=== PATIENT | female | born 1960 | race Caucasian/White ===

== ENCOUNTER → 2016-09-15 | Outpatient (CLI) | payer OTHER | LOC: FIMAGING 15:57 | DX: Z12.31 Encounter for screening mammogram for malignant neoplasm of breast (principal) | CPT/HCPCS: G0202 ==

== ENCOUNTER 2017-03-16 17:07 | Inpatient (IN) | payer OTHER ==
[2017-03-16] MEDS ORDERED: ACETAMINOPHEN 325 MG TAB PO ONE (18:17)
[2017-03-16 18:19] LABS: % IMMATURE GRANULYOCYTES 0.3 % (0.0-1.1); ABSOLUTE IMMATURE GRANULOCYTES 0.03 10^3/uL (0.00-0.10); ADD DIFF? NO; ADD MORPH? NO; ADD SCAN? NO; ATYPICAL LYMPHOCYTE FLAG 10 (0-99); FRAGMENT RBC FLAG 0 (0-99); HEMATOCRIT 33.8 % (38.0-47.0); HEMOGLOBIN 10.8 g/dL (12.6-16.3); LEFT SHIFT FLG 0 (0-99); LIPEMIA HEMOLYSIS FLAG 80 (0-99); MEAN CELL HEMOGLOBIN 26.9 pg (27.9-34.1); MEAN CELL VOLUME 84.1 fL (81.5-99.8); MEAN PLATELET VOLUME 8.6 fL (8.7-11.7); PLATELET CLUMPS FLAG 0 (0-99); PLATELET COUNT 334 10^3/uL (150-400); RED BLOOD CELL COUNT 4.02 10^6/uL (4.18-5.33); RED CELL DISTRIBUTION WIDTH 15.2 % (11.5-15.2)
[2017-03-16] MEDS ORDERED: PIPERACILLIN/TAZO 3.375 GM/DEX 50 ML IV ONE (18:23)
[2017-03-16] MEDS ORDERED: IOPAMIDOL (ISOVUE-300) 100 ML BTL ONE (18:28)
[2017-03-16 18:45] LABS: ANION GAP 13 mEq/L (8-16); CALCIUM 9.4 mg/dL (8.5-10.4); CARBON DIOXIDE 22 mEq/l (22-31); CHLORIDE 103 mEq/L (97-110); CREATININE 0.6 mg/dL (0.6-1.0); GLOMERULAR FILTRATION RATE > 60; GLUCOSE 96 mg/dL (70-100); POTASSIUM 3.9 mEq/L (3.5-5.2); SODIUM 138 mEq/L (134-144)
[2017-03-16 18:59] LABS: COLOR YELLOW; LEUKOCYTE ESTERASE,URINE NEGATIVE (NEGATIVE); NITRITE,URINE NEGATIVE (NEGATIVE)
--- NOTE | 2017-03-16 19:12 | EDPHY ---
H & P Stated Complaint: Has gastric bx this am;RX'd antibx,didn't start it;having abd pain/fever Time Seen by Provider: 03/16/17 17:35 HPI/ROS: CHIEF COMPLAINT: abdominal pain, fever HISTORY OF PRESENT ILLNESS: 56-year-old female presents emergency department complaining of abdominal pain and fever. Patient had an endoscopic ultrasound biopsy of a florin pancreatic lesion today by Dr. Contreras. It appeared to be infectious per Dr. Contreras. She was discharged home post procedure and was to oyster picker antibiotics at the pharmacy to start taking. Pt has had increasing abdominal pain as the day has progressed with a temperature up to 100.4 at home. Pt has not started the antibiotics. No nausea, vomiting, diarrhea. REVIEW OF SYSTEMS: A comprehensive 10 point review of systems is otherwise negative aside from elements mentioned in the history of present illness. Source: Patient - Personal History Current Tetanus Diphtheria and Acellular Pertussis (TDAP): Yes - Medical/Surgical History Other PMH: neg per pt - Social History Smoking Status: Former smoker - Physical Exam Exam: Physical Exam Gen: Alert and Oriented, NAD HEENT: PERRL, moist mucous membranes NECK: no meningismus CV: regular rate and regular rhythm PULM: CTAB, no wheezes ABDOMEN: Hypoactive bowel sounds, diffuse tenderness to palpation NEURO: Neurologically grossly intact EXTREMITIES: normal appearing SKIN: no rash or break in skin on exposed skin PSYCH: answers questions appropriately. Constitutional: Initial Vital Signs Temperature (C) 37.5 C 03/16/17 17:24 Heart Rate 88 03/16/17 17:24 Respiratory Rate 19 03/16/17 17:24 Blood Pressure 145/102 H 03/16/17 17:24 O2 Sat (%) 96 03/16/17 17:24 O2 Delivery Mode Room Air Allergies/Adverse Reactions: No Known Allergies Allergy (Unverified 03/16/17 17:27) Home Medications: Medication Instructions Recorded Herbals/Supplements -Info Only 1 each PO DAILY 03/16/17 Omeprazole [Omeprazole] 40 mg PO DAILY 03/16/17 Medical Decision Making - Diagnostics Imaging Results: Imaging Impressions Abdomen CT 03/16/17 18:20 Impression: 1. There is a 14.3 x 10.1 x 10.7 cm mass in the left upper quadrant of the abdomen, with differential considerations including a cystic-solid neoplasm and/ or multiloculated hematoma or abscess. Scattered mesenteric lymph nodes could be reactive or neoplastic. 2. Mild hepatic steatosis. 3. Borderline-splenomegaly. Findings were discussed with Kalyani Bryson NP at 21:27, on 03/16/2017. I had also attempted to contact Dr. Bari Orona. Imaging: Discussed imaging studies w/ scallop binder Radiologist ED Course/Re-evaluation: I spoke with Dr. Downing who is controls design engineer of GI. He spoke with Dr. Contreras who did the patients procedure today. Plan for CT ab pelvis with IV and oral contrast, antibiotics, labs and admission. Pt is comfortable with the plan. WBC mildly elevated at 10,600. - Data Points Laboratory Results: Laboratory Results 03/16/17 18:00 03/16/17 18:00 03/16/17 03/16/17 03/16/17 18:35 18:00 18:00 WBC 10.66 10^3/uL H 10^3/uL (3.80-9.50) RBC 4.02 10^6/uL L 10^6/uL (4.18-5.33) Hgb 10.8 g/dL L g/dL (12.6-16.3) Hct 33.8 % L % (38.0-47.0) MCV 84.1 fL fL (81.5-99.8) MCH 26.9 pg L pg (27.9-34.1) MCHC 32.0 g/dL L g/dL (32.4-36.7) RDW 15.2 % % (11.5-15.2) Plt Count 334 10^3/uL 10^3/uL (150-400) MPV 8.6 fL L fL (8.7-11.7) Neut % (Auto) 81.0 % H % (39.3-74.2) Lymph % (Auto) 9.1 % L % (15.0-45.0) [place] % (Auto) 8.1 % % (4.5-13.0) Eos % (Auto) 1.0 % % (0.6-7.6) Baso % (Auto) 0.5 % % (0.3-1.7) Nucleat RBC Rel Count 0.0 % % (0.0-0.2) Absolute Neuts (auto) 8.64 10^3/uL H 10^3/uL (1.70-6.50) Absolute Lymphs (auto) 0.97 10^3/uL L 10^3/uL (1.00-3.00) Absolute Monos (auto) 0.86 10^3/uL H 10^3/uL (0.30-0.80) Absolute Eos (auto) 0.11 10^3/uL 10^3/uL (0.03-0.40) Absolute Basos (auto) 0.05 10^3/uL 10^3/uL (0.02-0.10) Absolute Nucleated RBC 0.00 10^3/uL 10^3/uL (0-0.01) Immature Gran % 0.3 % % (0.0-1.1) Immature Gran # 0.03 10^3/uL 10^3/uL (0.00-0.10) Sodium 138 mEq/L mEq/L (134-144) Potassium 3.9 mEq/L mEq/L (3.5-5.2) Chloride 103 mEq/L mEq/L (97-110) Carbon Dioxide 22 mEq/l mEq/l (22-31) Anion Gap 13 mEq/L mEq/L (8-16) BUN 10 mg/dL mg/dL (7-23) Creatinine 0.6 mg/dL mg/dL (0.6-1.0) Estimated GFR > 60 Glucose 96 mg/dL mg/dL (70-100) Calcium 9.4 mg/dL mg/dL (8.5-10.4) Total Bilirubin 0.6 mg/dL mg/dL (0.1-1.4) Conjugated Bilirubin 0.4 mg/dL mg/dL (0.0-0.5) Unconjugated Bilirubin 0.2 mg/dL mg/dL (0.0-1.1) AST 16 IU/L IU/L (14-46) ALT 23 IU/L IU/L (9-52) Alkaline Phosphatase 79 IU/L IU/L (38-126) Total Protein 7.1 g/dL g/dL (6.3-8.2) Albumin 4.0 g/dL g/dL (3.5-5.0) Lipase 59 IU/L IU/L (23-300) Urine Color YELLOW Urine Appearance CLEAR Urine pH 6.0 (5.0-7.5) Ur Specific [place] 1.011 (1.002-1.030) Urine Protein NEGATIVE (NEGATIVE) Urine Ketones 1+ H (NEGATIVE) Urine Blood NEGATIVE (NEGATIVE) Urine Nitrate NEGATIVE (NEGATIVE) Urine Bilirubin NEGATIVE (NEGATIVE) Urine Urobilinogen NEGATIVE EU EU (0.2-1.0) Ur Leukocyte Esterase NEGATIVE (NEGATIVE) Urine Glucose NEGATIVE (NEGATIVE) Medications Given: Hydromorphone HCl (Dilaudid) 0.2 mg IVP Q2HRS PRN PRN Reason: Pain, Severe Unable to Take PO Stop: 03/26/17 19:34 Last Admin: 03/16/17 22:50 Dose: 0.2 mg Ertapenem 1 gm/ Sodium (Chloride) 100 mls @ 200 mls/hr IV DAILY@2100 JOHANNY PRN Reason: Protocol Stop: 04/15/17 20:59 Last Admin: 03/16/17 22:44 Dose: 100 mls Discontinued Medications Acetaminophen (Tylenol) 650 mg PO EDNOW ONE Stop: 03/16/17 18:18 Last Admin: 03/16/17 18:28 Dose: 650 mg Piperacillin/Tazobactam/Dextrose (Zosyn 3.375 Gm (Premix)) 50 mls @ 100 mls/hr IV EDNOW ONE PRN Reason: Protocol Stop: 03/16/17 18:52 Last Admin: 03/16/17 18:47 Dose: 50 mls Departure - Departure Disposition: [facility] Inpatient Acute Clinical Impression: Fever Qualifiers: Fever type: post-procedural Qualified Code(s): R50.82 - Postprocedural fever Abdominal pain Qualifiers: Abdominal location: generalized Qualified Code(s): R10.84 - Generalized abdominal pain Condition: Fair
[2017-03-16] MEDS ORDERED: ONDANSETRON 4 MG/2 ML VIAL IVP PRN (19:31)
[2017-03-16] MEDS ORDERED: ONDANSETRON DISINTEGRATING 4 MG TAB PO PRN (19:31)
[2017-03-16 19:33] LABS: ALANINE AMINOTRANSFERASE 23 IU/L (9-52); ALKALINE PHOSPHATASE 79 IU/L (38-126); ASPARTATE AMINOTRANSFERASE 16 IU/L (14-46); BILIRUBIN,TOTAL 0.6 mg/dL (0.1-1.4); BILIRUBIN-CONJUGATED 0.4 mg/dL (0.0-0.5); BILIRUBIN-UNCONJUGATED 0.2 mg/dL (0.0-1.1); TOTAL PROTEIN 7.1 g/dL (6.3-8.2)
[2017-03-16] MEDS ORDERED: NS 1,000 ML IV SCH (19:45)
--- NOTE | 2017-03-16 20:12 | GHP ---
[f rep st] HISTORY AND PHYSICAL DATE OF ADMISSION: 03/16/2017 HISTORY OF PRESENT ILLNESS: The patient is a pleasant 56-year-old female with a history of remote pa ncreatic shunt. It sounds like she had blunt abdominal trauma, subsequently had a surgical procedure on her abdomen. She has done well for a number of years. This happened probably 30 years ago. Of the last few months, she has had increasing abdominal pain, and a rising sedimentation rate. She gets most of her care outside of the [facility] and I have few records. 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 The differential on this was infection, a cystic neoplasm, etc. She underwent EUS with biopsy today with Dr. Ankit Contreras and he withdrew what appeared to be pus. The Gram stain on that at an outside institution shows polys and gram-negative rods. She was discharged with antibiotics but developed a fever and presents here. When I speak with the patient, she is alert, mentating and feels well. She has not had subjective fe vers or chills prior to this. She has not had drenching night sweats or weight loss. She describes occasional bouts of abdominal pain with nausea and vomiting but no hospitalizations for pancreatitis. She drinks some alcohol with regularity but does not binge. REVIEW OF SYSTEMS: Complete 10-point review of systems conducted and negative except as noted in the HPI. PAST MEDICAL HISTORY: Pancreatic shunt, reflux. SOCIAL HISTORY: Occasional alcohol. No tobacco. 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 Lives in [place]. FAMILY HISTORY: Reviewed and unremarkable. PHYSICAL EXAMINATION: VITAL SIGNS: Temp 37.5, blood pressure 145/102, pulse 88, breathing 19 times a minute, 96 on room air. GENERAL: No acute distress. HEENT: Sclerae anicteric. Oropharynx clear . Mucous membranes moist. NECK: Supple. No lymphadenopathy or JVD. LUNGS: Clear to auscultation bilaterally. HEART: S1, S2. ABDOMEN: Soft, nontender, nondistended. No rebound or guarding. LO WER EXTREMITIES: No edema. Calves are nontender. SKIN: Without rash. NEUROLOGIC: Nonfocal. LABORATORY DATA: White count 10.6, hematocrit 34, platelets are 334,000. Sodium 138, potassium 3.9, chloride 103, bicarb 22, BUN 13, creatinine 0.6, glucose 96. UA is negative. I have discussed the case with Dr. Fisher as well as CHALINO Hartley in the emergency department. ASSESSMENT/PLAN: A 56-year-old female with an intraabdominal abscess. 1. Abscess. This appears to be an abscess on the basis of a Gram stain and polys present on the asp iration today. She has an abdominal CAT scan pending at this time. She was started on Zosyn in the emergency department. I will switch her over to ertapenem. Blood cultures have been drawn. We will start her on IV fluids. She does not have sepsis. 2. Reflux. We will order a proton pump inhibitor. 3. Pain. P.r.n. Dilaudid. 4. Prophylaxis. The patient is moderate to high risk, and should be on deep venous thrombosis proph ylaxis. But given the potential need for upcoming surgery or other procedure we will hold off. DISPOSITION: Inpatient status. /[id number]/MODL
[2017-03-16] MEDS: ERTAPENEM 1 GM in NS 100 ML IV SCH (22:44)
[2017-03-16] MEDS: HYDROmorphONE/DILAUDID 1 MG/ML INJ IVP PRN (22:50)
[2017-03-17] MEDS: HYDROmorphONE/DILAUDID 1 MG/ML INJ IVP PRN ×2 (01:08→04:37)
--- NOTE | 2017-03-17 02:48 | GCON ---
[f rep st] CONSULTATION DATE OF CONSULTATION: 03/16/2017 REFERRING PHYSICIAN: Dr. Orona INDICATION FOR CONSULTATION: Abdominal pain and fever after EUS and needle biopsy of possible phlegm on/abscess. HISTORY OF PRESENT ILLNESS: The patient is a pleasant 56-year-old female, who was referred to our pr actice for abnormal sonogram followed by a CT scan. She had an abdominal ultrasound performed on Jan, abnormal appearance of the left kidney, and they recommended a CT scan. A CT scan with and without contrast was performed on March 09, 2017, and revealed a 14.9 cm heterogeneous enhan cing mass with internal septations and foci of fluid attenuation, which involves the lateral wall of the stomach and the tail of the pancreas and envelops the patient's presumptive "pancreatic shunt" wi thout definite evidence of narrowing. She was referred to endoscopic ultrasound, which was performed today over [facility]. My partner, who performed the procedure, said when he put a nee dle into it, it appeared to be also a phlegmon. He sent it off for analysis. I do not have his curr ent dictation. The aspirate from the pancreatic body did show many WBCs with predominantly polys and a few gram-negative rods. Culture results are pending. After discharge, she has felt some pain in her stomach, and they thought it was just mostly air. She was discharged home and she called back co mplaining of pain and fever, and so she was recommended to come back to the emergency room for evalua tion. She lives close to [facility] and came to the emergency room here. She is now b ei admitted for a presumed infectious process involving her pancreatic shunt. Her history of pancr eatitis dates back many years in 1985 when she had a volleyball injury and a pancreatic injury. The surgeon at that point performed a shunt where he took part of her intestine and attached it to the ta il of her pancreas. Over the last number of months, she has been having infectious issues that have been treated with antibiotics. I believe her infectious issues have most likely been this phlegmon. She is now admitted for definitive evaluation and treatment. PAST MEDICAL/SURGICAL HISTORY: Pancreatitis, cholecystectomy, . She has some reflux, for w hich she takes omeprazole. MEDICATIONS: At home include omeprazole. Medications in-hospital: Tylenol p.r.n., ertapenem 100 mL IV daily, Dilaudid p.r.n., Zofran p.r.n., Protonix 40 mg daily. ALLERGIES: No known drug allergies. SOCIAL HISTORY: She quit tobacco in her early 40s. She drinks occasional alcohol every couple days. FAMILY HISTORY: Positive for breast cancer. No colon cancer or colon polyps. No pancreatic abnorma lities. REVIEW OF SYSTEMS: A complete review of systems is performed and is negative other than noted in the HPI. Pertinent negatives currently include no rigors, no chest pain, no cough, no dysuria, no diarr hea, no hematochezia. PHYSICAL EXAMINATION: GENERAL: Well developed, well-nourished female, sitting in her bed, in no acu te distress. VITAL SIGNS: Temperature is 37.5, blood pressure is 145/102, pulse is 88, respirations are 19. She is 96% on room air. EYES: Anicteric. SARA. EOMI. MOUTH: No lesions. Moist mucous membranes. NECK: Supple. Full range of motion. No JVD. BACK: No spine tenderness. No CVA tend erness. LUNGS: Clear. CARDIAC: S1, S2. Regular rate and rhythm. No murmurs, rubs, or gallops ap preciated. ABDOMEN: Soft. Bowel sounds are normal in pitch and frequency. Tender over in the left side. No rebound. No guarding. EXTREMITIES: No cyanosis, clubbing, or edema. NEUROLOGIC: Crani al nerves intact. Nonfocal. SKIN: No stigmata of advanced liver disease. No rashes. LABORATORY DATA: WBC 10.66, hemoglobin 10.8, hematocrit 33.8, platelet count 334. Sodium 138, potas sium 3.9, chloride 103, bicarb 22, BUN 10, creatinine 0.6, glucose 96, calcium 9.4. Bilirubin 0.6, A ST 16, ALT 23, alkaline phosphatase 79, total protein 7.1, albumin 4.0, lipase 59. Her UA is normal except for 1+ ketones. IMAGING DATA: Her CT scan of the abdomen performed today is pretty consistent with the one performed on March 09. She has a 14 x 3 x 10.1 x 10 cm mass in the left lower quadrant of the abdomen. There are curvilinear surgical clips within this mass just posterior to the gastric fundus and adriana guous with the distal pancreatic body and tail. Differential diagnosis includes multiloculated hemat yifan or abscess, cystic or solid neoplasm. I favor an infection,, given the EUS results noted in the HPI. ASSESSMENT: 1. A 56-year-old female, who presents with pain and fever after endoscopic ultrasound and needle bio psy of this abnormality noted on CT scan, which I think is likely to be a phlegmon. She does have so me gram-negative rods in it. I do not know what the cultures will grow. 2. Abnormal imaging study. 3. History of reflux. RECOMMENDATIONS: 1. IV antibiotics. 2. Surgical consult in the a.m. 3. Omeprazole for her reflux. 4. P.r.n. Dilaudid for pain. 5. Further recommendations to follow results of above and clinical course. I have discussed this ca se with Dr. Orona. He has changed her from Zosyn over to ertapenem. /[id number]/MODL
[2017-03-17 06:29] LABS: % IMMATURE GRANULYOCYTES 0.4 % (0.0-1.1); ABSOLUTE IMMATURE GRANULOCYTES 0.03 10^3/uL (0.00-0.10); ADD DIFF? NO; ADD MORPH? NO; ADD SCAN? NO; ATYPICAL LYMPHOCYTE FLAG 10 (0-99); FRAGMENT RBC FLAG 0 (0-99); HEMATOCRIT 30.5 % (38.0-47.0); HEMOGLOBIN 9.6 g/dL (12.6-16.3); LEFT SHIFT FLG 0 (0-99); LIPEMIA HEMOLYSIS FLAG 80 (0-99); MEAN CELL HEMOGLOBIN 26.7 pg (27.9-34.1); MEAN CELL HEMOGLOBIN CONCENTR. 31.5 g/dL (32.4-36.7); MEAN PLATELET VOLUME 8.4 fL (8.7-11.7); PLATELET CLUMPS FLAG 10 (0-99); PLATELET COUNT 269 10^3/uL (150-400); RED BLOOD CELL COUNT 3.59 10^6/uL (4.18-5.33); RED CELL DISTRIBUTION WIDTH 15.1 % (11.5-15.2)
[2017-03-17 06:36] LABS: INR 1.34 (0.83-1.16); PROTIME(PATIENT) 16.6 SEC (12.0-15.0)
[2017-03-17 06:37] LABS: APTT 27.2 SEC (23.0-38.0)
[2017-03-17 06:47] LABS: ALANINE AMINOTRANSFERASE 26 IU/L (9-52); ALBUMIN 3.2 g/dL (3.5-5.0); ALKALINE PHOSPHATASE 65 IU/L (38-126); ANION GAP 10 mEq/L (8-16); ASPARTATE AMINOTRANSFERASE 14 IU/L (14-46); BILIRUBIN,TOTAL 0.7 mg/dL (0.1-1.4); CALCIUM 8.7 mg/dL (8.5-10.4); CARBON DIOXIDE 24 mEq/l (22-31); CHLORIDE 105 mEq/L (97-110); CREATININE 0.5 mg/dL (0.6-1.0); GLOMERULAR FILTRATION RATE > 60; GLUCOSE 114 mg/dL (70-100); POTASSIUM 3.7 mEq/L (3.5-5.2); SODIUM 139 mEq/L (134-144); TOTAL PROTEIN 5.9 g/dL (6.3-8.2)
[2017-03-17] MEDS: PANTOPRAZOLE SODIUM 40 MG TAB PO SCH (07:53)
[2017-03-17] MEDS: ACETAMINOPHEN 325 MG TAB PO PRN ×2 (10:04→22:07)
--- NOTE | 2017-03-17 11:47 | HOSPPROG ---
Hospitalist Progress Note Assessment/Plan: #Fever: after EUS and needle biopsy of suspected abdominal phlegmon. -Contact [facility] for culture results. -Appreciate GI consultation, surgery will consult today. -IV Ertapenem, mild leukocytosis resolved #Abd pain: not peritoneal. Pancreatic injury vs infection. #Diet: NPO #Disp: cont inpt care for acute pain control, surgical consult Subjective: epigastric pain improved Objective: Vital Signs Temp Pulse Resp BP Pulse Ox 36.8 C 74 19 148/96 H 91 L 03/17/17 11:45 03/17/17 11:45 03/17/17 11:45 03/17/17 11:45 03/17/17 11:45 Laboratory Results 03/17/17 06:03 03/17/17 06:03 PT 16.6 SEC (12.0-15.0) H 03/17/17 06:03 INR 1.34 (0.83-1.16) H 03/17/17 06:03 - Physical Exam Constitutional: no apparent distress Eyes: PERRL Ears, Nose, Mouth, Throat: moist mucous membranes, hearing normal Cardiovascular: regular rate and rhythym, no murmur, rub, or gallop Respiratory: no respiratory distress Gastrointestinal: normoactive bowel sounds, other (mild epigastric TTP, no rebound or guarding, +BS ) Genitourinary: no bladder fullness Skin: warm Musculoskeletal: full muscle strength Neurologic: AAOx3, CN II-XII Intact Psychiatric: interacting appropriately ICD10 Worksheet Patient Problems: Problems Problem Status Onset Abdominal pain Acute Fever Acute
--- NOTE | 2017-03-17 15:40 | ASMTCMCOM ---
CM Note CM Note Notes: Per RN Nita pt will need home IV antibiotics, pt currently on Ertapenem. Will get picc tomorrow. Amradhika faxed referral and Lorena notified. CM to follow. Date Signed: 03/17/2017 03:39 PM Electronically Signed By:RAÚL Thomas
--- NOTE | 2017-03-17 18:55 | SOAPPROG ---
SOASHA Progress Note Assessment/Plan: Assessment:Plan: 1) mass lesion ? phlegmon? - I have asked both surgery and ID to see pt. I think this is infectious and will need surgical removal. If it is a caner or complicated pseudocyst then surgery is also likely the answer for this problem. Question about timing of surgery. Her needle asp of panc showed reactive changes no cancer. LN was also reacitve. Her cx is pending - poly's and few gram neg rods thus far 2) ID - on ABX, ID consult pending. I spoke with Dr. Rodrigues by phone Dr. Watts will be picking up inpt at 5pm today Subjective: cc- mass lesion noted on CT scan assoc with her pancrease pt feeling OK, still some pain but better wondering about plan Objective: Vital Signs Temp Pulse Resp BP Pulse Ox 36.8 C 74 19 148/96 H 91 L 03/17/17 11:45 03/17/17 11:45 03/17/17 11:45 03/17/17 11:45 03/17/17 11:45 Laboratory Results 03/17/17 06:03 03/17/17 06:03 03/16/17 03/17/17 03/18/17 05:59 05:59 05:59 Intake Total 900 Balance 900 PT 16.6 SEC (12.0-15.0) H 03/17/17 06:03 INR 1.34 (0.83-1.16) H 03/17/17 06:03 A+Ox3 CTA S1S2, RRR +BS, soft tender no r/g ICD10 Worksheet Patient Problems: Problems Problem Status Onset Abdominal pain Acute Fever Acute
--- NOTE | 2017-03-17 19:08 | GCON ---
[f rep st] CONSULTATION DATE OF CONSULTATION: 03/17/2017 INDICATION FOR CONSULTATION: Abdominal pain and fever after EUS and needle biopsy for possible phlegmon or abscess. HISTORY OF PRESENT ILLNESS: The patient is a 56-year-old female who has been experiencing intermittent signs and symptoms of infection including abdominal pain and fever over the last 2-3 months, for which she has been treated with 3 different regimens of antibiotics without success. She had an abdominal CT scan done at [facility] that showed an 11 x 10 x 15 cm heterogeneously enhancing mass in the left upper quadrant of her abdomen with differential considerations including a cystic solid neoplasm, multi-loculated hematoma or abscess. She underwent an EUS with biopsy with Dr. Contreras. She reports that he withdrew what appeared to be pus-like fluid. The Gram stain demonstrated neutrophils and gram-negative rods. Cultures and Pathology are still pending. She was discharged from the EUS with antibiotics but developed a fever and abdominal pain, which is the reason for this admission. Today, the patient is alert and oriented. She feels well. She complains of slight abdominal tenderness. She denies subjective fevers and chills. She denies night sweats and weight loss. She denies nausea and vomiting. She overall feels well. REVIEW OF SYSTEMS: Complete 10-point review of systems conducted and negative, except for as noted in the HPI. PAST MEDICAL HISTORY: She has remote history of a pancreatic shunt for blunt trauma she experienced 30 years ago. Details unknown to patient. GERD. SOCIAL HISTORY: She is an occasional alcohol user. She denies use of tobacco. FAMILY HISTORY: Unremarkable. PHYSICAL EXAMINATION: VITAL SIGNS: Afebrile. Blood pressure 148/96. GENERAL : Well-appearing, nontoxic-appearing female in no acute distress. HEENT: Sclerae anicteric. Normocephalic, atraumatic. Mucous membranes moist. NECK: No lymphadenopathy. LUNGS: Clear to auscultation bilaterally. No increased work of breathing. COR: Regular rate and rhythm. Normal S1, S2. No murmurs appreciated. ABDOMEN: Soft, obese, nontender to palpation, nondistended. No rebound or guarding. No signs of peritonitis. EXTREMITIES: Full range of motion. No edema. SKIN: Warm, dry, without rash. NEUROLOGIC: Alert and oriented. PSYCH: Normal mood and affect. ASSESSMENT AND PLAN: The patient is a 56-year-old female with a pancreatic mass of unknown etiology at this time. Differential considerations of this mass could be cystic solid neoplasm or an abscess. Abscess is unlikely given that her leukocytosis has been resolved with 1 overnight of IV antibiotics. In addition, she is afebrile. We are awaiting the pathology from the FNA. This will likely be resulted early next week. We have consulted Infectious Disease for antibiotics regimen. It is unlikely that antibiotics will clear this mass as she has been on 3 courses of antibiotics before this admission. This is likely a surgical problem requiring surgery for diagnosis and therapeutic purposes. Surgery will follow throughout this admission. /[id number]/MODL MTDD
--- NOTE | 2017-03-17 19:49 | GCON ---
[f rep st] CONSULTATION INPATIENT INFECTIOUS DISEASE CONSULTATION REFERRING PHYSICIAN: Huan Downing MD REASON FOR ADMISSION: Intraabdominal mass, query infection. HISTORY OF PRESENT ILLNESS: The patient is a 56-year-old female, who was admitted to [facility] last night through the Emergency Department secondary to abdominal pain and fever. The pat verenice underwent an abdominal CT approximately 1 week ago as an outpatient at [facility], which lucero wed a peripancreatic lesion. She underwent an endoscopic ultrasound biopsy by Dr. nAkit Contreras today, w here fluid was obtained that looked to be purulent. The patient was initially intended to be managed with oral antibiotics, but she had increasing abdominal pain and low-grade temps. She presented to the emergency room instead. The patient was admitted and started on intravenous ertapenem 1 g daily. A repeat abdominal CT scan was obtained, which showed a very large heterogeneous mass that seems to be exophytic off the tail of the pancreas, but abutting as well to the wall of the stomach. There i s some fluid within this mass, as well as solid tissue and some calcification. She is resting comfor tably in her hospital bed currently. No immediate complaints. Family is in the room. PAST MEDICAL HISTORY: 1. Old athletic injury while she was in college playing volleyball. 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 She has not had a problem with this fix over the past 25-30 years. 2. Gastroesophageal reflux disease. PAST SURGICAL HISTORY: As above. ANTIBIOTICS: Ertapenem. ALLERGIES: The patient has no known medical allergies. SOCIAL HISTORY: The patient does not use tobacco. Occasional alcohol consumption. Very supportive family. FAMILY HISTORY: Reviewed, but noncontributory. REVIEW OF SYSTEMS: Other than that detailed above in history of present illness, a comprehensive 10- system review is negative. PHYSICAL EXAMINATION: VITAL SIGNS: Temperature maximum is 37.5, temperature current is 36.8, heart rate is 74, respiratory rate is 19, blood pressure is 148/96. GENERAL: The patient is a well-formed , well-nourished, middle-aged female in no acute distress. She is not toxic in appearance. She is a lert and oriented x3. She is in a pleasant demeanor. HEENT: Normocephalic for age. Atraumatic. N o scleral icterus. No oral lesion. No drainage from the nares. Eyes, lids and conjunctivae are wit hin normal limits. Pupils are equal and round bilaterally. NECK: Supple. No meningismus. LUNGS: Clear to auscultation bilaterally with good effort. HEART: Regular rate and rhythm. No murmur, ru b, or gallop noted. No significant peripheral edema. ABDOMEN: Soft, nontender. No masses. SKIN: Warm and dry to the touch. No rash or lesion. MUSCULOSKELETAL: No muscle belly tenderness is note d. No joint line effusion or arthritis seen. NEURO: Cranial nerves 2-12 seem to be intact. Periph eral sensation seems intact in extremities. LABORATORY DATA: The patient has a CBC dated 03/17/2017, shows a white blood cell count of 7.6, hemo globin of 9.6, hematocrit of 30.5, platelet count of 269. Differential is left shifted with 79% segm ented neutrophils. Serum chemistries on 03/17/2017, shows sodium 139, potassium 3.7, chloride 105, b icarbonate of 24, BUN of 7, and creatinine 0.5. Urinalysis on 03/16/2017, shows no significant abnor mality. MICROBIOLOGIC DATA: The patient has blood cultures dated 03/16/2017, which are pending. The aspirat e culture from the ultrasound is at [facility]. RADIOLOGIC DATA: The patient has abdominal pelvic CT dated 03/16/2017, which shows a 14.3 x 10.1 x 1 0.7 cm mass in the left upper quadrant of the abdomen with a cystic solid appearance. Interpretation s from Radiology includes cystic solid neoplasm, a multiloculated hematoma or abscess, scattered mese nteric lymph nodes around, mild hepatic steatosis, and borderline splenomegaly. ASSESSMENT: Large intraabdominal mass with tissue, as well as fluid, as well as calcifications withi n. This looks to be exophytic off the tail of the pancreas with maybe some abutment or invasion into the gastric wall. The invasive quality makes one consider a neoplastic process. This could be a se condarily infected neoplasm. Apparently, the fluid obtained is growing a gram-negative julianna. So, she is well covered with the ertapenem. I suspect that this is going to be requiring surgery to remove the mass and get accurate tissue diagnosis. At this point, I do not believe there is good cause to d elay that for any period of time to complete a course of antibiotics prior to surgical either biopsy or excision. PLAN: 1. Continue ertapenem for now. 2. Follow clinical course and discuss with Surgery regarding plan. /[id number]/MODL
[2017-03-17] MEDS: ERTAPENEM 1 GM in NS 100 ML IV SCH (22:06)
[2017-03-18 05:12] LABS: % IMMATURE GRANULYOCYTES 0.4 % (0.0-1.1); ABSOLUTE IMMATURE GRANULOCYTES 0.02 10^3/uL (0.00-0.10); ADD DIFF? NO; ADD MORPH? NO; ADD SCAN? NO; ATYPICAL LYMPHOCYTE FLAG 20 (0-99); FRAGMENT RBC FLAG 0 (0-99); HEMATOCRIT 30.2 % (38.0-47.0); HEMOGLOBIN 9.6 g/dL (12.6-16.3); LEFT SHIFT FLG 0 (0-99); LIPEMIA HEMOLYSIS FLAG 80 (0-99); MEAN CELL HEMOGLOBIN 26.9 pg (27.9-34.1); MEAN CELL HEMOGLOBIN CONCENTR. 31.8 g/dL (32.4-36.7); MEAN CELL VOLUME 84.6 fL (81.5-99.8); MEAN PLATELET VOLUME 8.7 fL (8.7-11.7); PLATELET CLUMPS FLAG 10 (0-99); PLATELET COUNT 247 10^3/uL (150-400); RED BLOOD CELL COUNT 3.57 10^6/uL (4.18-5.33); RED CELL DISTRIBUTION WIDTH 14.9 % (11.5-15.2)
[2017-03-18 05:29] LABS: ANION GAP 13 mEq/L (8-16); CALCIUM 8.6 mg/dL (8.5-10.4); CARBON DIOXIDE 24 mEq/l (22-31); CHLORIDE 105 mEq/L (97-110); CREATININE 0.6 mg/dL (0.6-1.0); GLOMERULAR FILTRATION RATE > 60; GLUCOSE 108 mg/dL (70-100); POTASSIUM 3.7 mEq/L (3.5-5.2); SODIUM 142 mEq/L (134-144)
--- NOTE | 2017-03-18 08:47 | HOSPPROG ---
Hospitalist Progress Note Assessment/Plan: #Fever: after EUS and needle biopsy of suspected abdominal phlegmon. -Contact [facility] for culture results. -IV Ertapenem, mild leukocytosis resolved -ID recs surgical intervention rather than abx to obtain path. I spoke with Dr. Solares today about expediting surgery. Patient declines surgery as inpatient. Will FU with Dr. Solares next week. Change to PO Flagyl, LQ #Abd pain: not peritoneal. Pancreatic injury vs infection. #Diet: regular #Disp: DC today with FU with Dr. Solares Subjective: no abdominal pain Objective: Vital Signs Temp Pulse Resp BP Pulse Ox 37.3 C 66 14 148/100 H 92 03/18/17 07:52 03/18/17 07:52 03/18/17 07:52 03/18/17 07:52 03/18/17 07:52 Laboratory Results 03/18/17 04:27 03/18/17 04:27 03/17/17 03/18/17 03/19/17 05:59 05:59 05:59 Intake Total 1200 Balance 1200 PT 16.6 SEC (12.0-15.0) H 03/17/17 06:03 INR 1.34 (0.83-1.16) H 03/17/17 06:03 - Physical Exam Constitutional: no apparent distress Eyes: PERRL Ears, Nose, Mouth, Throat: moist mucous membranes, hearing normal Cardiovascular: regular rate and rhythym Respiratory: no respiratory distress, no rales or rhonchi Gastrointestinal: normoactive bowel sounds, other (min epigastric TTP) Genitourinary: no bladder fullness Skin: warm Musculoskeletal: full muscle strength Neurologic: AAOx3, CN II-XII Intact Psychiatric: interacting appropriately ICD10 Worksheet Patient Problems: Problems Problem Status Onset Abdominal pain Acute Fever Acute
[2017-03-18] MEDS: PANTOPRAZOLE SODIUM 40 MG TAB PO SCH (09:13)
--- NOTE | 2017-03-18 10:59 | SOAPPROG ---
SOAP Progress Note Assessment/Plan: Assessment: Pancreatic lesion Abd pain with fever post needle biopsy clinically much better no fever and pain much improved. Patient would like to be discharged home. Plan: Agree with surgical treatment awaiting FNA From GI standpoint could consider discharge home (with PO antibiotics if ID agrees) with surgical follow up vs preceding with surgery this admission. Will defer to surgical consult. Subjective: CC abd pain Pt states pain is much better able to eat Objective: Vital Signs Temp Pulse Resp BP Pulse Ox 37.3 C 66 14 148/100 H 92 03/18/17 07:52 03/18/17 07:52 03/18/17 07:52 03/18/17 07:52 03/18/17 07:52 Laboratory Results 03/18/17 04:27 03/18/17 04:27 03/17/17 03/18/17 03/19/17 05:59 05:59 05:59 Intake Total 1200 Balance 1200 PT 16.6 SEC (12.0-15.0) H 03/17/17 06:03 INR 1.34 (0.83-1.16) H 03/17/17 06:03 Physical Exam - Physical Exam General Appearance: alert, no apparent distress Respiratory: chest non-tender, lungs clear Cardiac/Chest: regular rate, rhythm Abdomen: non-tender, soft ICD10 Worksheet Patient Problems: Problems Problem Status Onset Abdominal pain Acute Fever Acute
[2017-03-18 11:08] VITALS: BP 163/101; PULSE 71; RESP 16; TEMP 98.3; O2SAT 93
--- NOTE | 2017-03-18 14:25 | PCMIDPN ---
Assessment/Plan: Assessment: Abdominal mass- fluid withdrawn 3 days ago that is growing polymicrobial cultures at [facility]. Group F strep and a lactose fermenting gram- negative julianna. There is no evidence that this has any significant resistance to it. It is evidence that there is likely communication to the GI tract proper. Patient clearly needs surgery to remove this mass for diagnosis and therapeutic purposes. She and her understand this. She wishes to delay this until later this week or early next week due to other commitments. We will provide her with oral Levaquin 750 mg daily and metronidazole 500 mg 3 times a day for an antibiotic bridge until surgery. Plan: 1. okay for discharge today according to the plan above. 2. change antibiotic coverage from ertapenem to oral Levaquin 750 mg daily and metronidazole 500 mg three times daily. 03/18/17 14:21 Subjective: Patient is resting in her hospital bed. She continues to appear nontoxic. She has no new complaints. No fevers or chills. No rash. Appears to be tolerating antibiotics well. Objective: Ertapenem # 3 Vital Signs Temp Pulse Resp BP Pulse Ox 36.8 C 71 16 163/101 H 93 03/18/17 11:05 03/18/17 11:05 03/18/17 11:05 03/18/17 11:05 03/18/17 11:05 Laboratory Results 03/18/17 04:27 03/18/17 04:27 03/17/17 03/18/17 03/19/17 05:59 05:59 05:59 Intake Total 1200 Balance 1200 - Physical Exam General Appearance: WD/WN, alert, no apparent distress, non-toxic Respiratory: lungs clear Cardiac/Chest: regular rate, rhythm, No tachycardia Skin: normal color, warm/dry, No rash Neuro/Psych: alert, normal mood/affect, oriented x 3 ICD10 Worksheet Patient Problems: Problems Problem Status Onset Abdominal pain Acute Fever Acute
--- NOTE | 2017-03-18 14:51 | ASMTCMCOM ---
CM Note CM Note Notes: Patient discharging home with family on oral IV antibiotics. Patient changed from IV antibiotics with Ametita to oral Levaquin. No additional Case Management needs apparent at this time. Date Signed: 03/18/2017 02:51 PM Electronically Signed By:RAÚL Peña
--- NOTE | 2017-03-18 17:58 | SOAPPROG ---
[place] Progress Note Assessment/Plan: Assessment: 56-YEAR-OLD FEMALE WITH DISTAL PANCREATIC MASS STATUS POST BIOPSY WHICH SHOWED ONLY INFLAMMATORY CHANGE/SHE HAS A HISTORY OF INTERNAL DRAINAGE OF A PSEUDOCYST 30 YEARS AGO PRESENTLY WITH SOME TRANSIENT LEFT UPPER QUADRANT PAIN/ABDOMEN SOFT NONTENDER PRESENTLY MASS APPEARS TO BE PRIMARILY SOLID ON CT SCAN/HOLE REPORTS FROM [facility] OR NOT AVAILABLE TODAY/ RISKS AND OPTIONS WERE FULLY DISCUSSED WITH THE PATIENT AND HER . WOULD RECOMMEND SURGICAL RESECTION ANTIBIOTICS ALONE ARE UNLIKELY TO RESOLVE THE SITUATION AND THE POTENTIAL FOR MALIGNANT TO THE TUMOR EXISTS DESPITE A NEGATIVE BIOPSY. PATIENT HAS BEEN WISHED WRIST PROCEED WITH RESECTION NEXT WEEK Plan: HOME TODAY/FOLLOW-UP THE OFFICE NEXT WEEK TO PLAN SURGICAL INTERVENTION 03/18/17 17:54 Objective: Vital Signs Temp Pulse Resp BP Pulse Ox 36.8 C 71 16 163/101 H 93 03/18/17 11:05 03/18/17 11:05 03/18/17 11:05 03/18/17 11:05 03/18/17 11:05 Laboratory Results 03/18/17 04:27 03/18/17 04:27 03/17/17 03/18/17 03/19/17 05:59 05:59 05:59 Intake Total 1200 Balance 1200 PT 16.6 SEC (12.0-15.0) H 03/17/17 06:03 INR 1.34 (0.83-1.16) H 03/17/17 06:03 ICD10 Worksheet Patient Problems: Problems Problem Status Onset Abdominal pain Acute Fever Acute
--- NOTE | 2017-03-18 21:17 | GDS ---
[f rep st] DISCHARGE SUMMARY DISCHARGE DIAGNOSES: 1. Abdominal mass with polymicrobial positive culture (group F strep and lactose fermenting gram-negative rods). History of pseudocyst 30 years ago. 2. Acute left upper quadrant/epigastric pain. HISTORY OF PRESENT ILLNESS: A 56-year-old female with history of pseudocyst 30 years ago and remote pancreatic shunt. Over the last few months, she has had increased abdominal pain. Had abdominal CT done at [facility] the last few weeks showed she had an 11 x 10 x 15 cm heterogeneous enhancing mass and areas of internal septation and fluid attenuation that abuts the lateral wall of the stomach and tail of the pancreas. 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 Differential includes infection , cystic neoplasm, etc. She underwent EUS with Dr. Ankit Contreras on 03/16/2017, and withdrew what appeared to be pus. Cultures showed gram-negative julianna, and thus she was discharged home on antibiotics. She presented to the emergency room at [facility] due to fever at home and increased abdominal pain. HOSPITAL COURSE BY PROBLEM: 1. Abdominal mass: Differential includes cancer, phlegmon. She has been on 3 rounds of antibiotic since early December per her report. Cultures at [facility] this week showed group F strep and lactose fermenting gram-negative rods. Dr. Rodrigues with Infectious Disease evaluated the patient, and recommends a 10-day course of levofloxacin and Flagyl. Dr. Solares with Surgery evaluated, and will see patient in clinic next Monday to remove this mass for diagnostic and therapeutic purposes. 2. Abdominal pain, resolved. 3. Fever, resolved. Blood cultures remain negative here. DISPOSITION: The patient is stable for discharge. NEW MEDICATIONS: Levo, Flagyl. FOLLOWUP: Dr. Solares, Monday. /[id number]/MODL MTDD
--- NOTE | 2017-03-20 14:12 | ASDISCHSUM ---
Discharge Information Plan Status:Home with No Needs Medically Cleared to Leave:03/18/2017 Discharge Date:03/18/2017 03:01 PM CM D/C Disposition:Home, Routine, Self-Care ADT D/C Disposition:Home, Routine, Self-Care Projected Discharge Date:03/18/2017 11:00 AM Transportation at D/C: Discharge Delay Reason: Follow-Up Date:03/18/2017 11:00 AM Discharge Slot: Final Diagnosis:abdominal pain, fever, Peripancreatic lesion Placement Information Referral Type:Home Infusion Referral ID:[id number] Provider Name: Address 1: Phone Number: Address 2: Fax Number: City: Selection Factors: State: Patient Contact Information Contact Name:BRITTNEY Relationship:Life Partner Address:[address] City:[facility] Phone: State/Zip Code:[place] [address] Email: Financial Information Financial Class:[employer] [facility] Primary Plan Desc:[facility] Primary Plan Number:[id number] Secondary Plan Desc: Secondary Plan Number: Assessment Information [facility] CM Progress Note CM Note CM Note Notes: Per MIMI Moya pt will need home IV antibiotics, pt currently on Ertapenem. Will get picc tomorrow. Nino faxed referral and Lorena notified. CM to follow. Date Signed: 03/17/2017 03:39 PM Electronically Signed By:RAÚL Thomas [facility] CM Progress Note CM Note CM Note Notes: Patient discharging home with family on oral IV antibiotics. Patient changed from IV antibiotics with Ametita to oral Levaquin. No additional Case Management needs apparent at this time. Date Signed: 03/18/2017 02:51 PM Electronically Signed By:RAÚL Peña Intervention Information
== END 2017-03-18 15:01 | disposition home or self-care (01) | DRG 947 ==
LOC: F3N 20:40
PROVIDERS: ADMIT Internal Medicine; ATTEND Internal Medicine
DX: G89.18 Other acute postprocedural pain (principal); R10.11 Right upper quadrant pain; R10.13 Epigastric pain; R50.81 Fever presenting with conditions classified elsewhere; K65.1 Peritoneal abscess; B95.4 Other streptococcus as the cause of diseases classified elsewhere; B96.89 Other specified bacterial agents as the cause of diseases classified elsewhere; Z98.0 Intestinal bypass and anastomosis status
CPT/HCPCS: 96365; J1170; J1335; J2543; Q9967

== ENCOUNTER 2017-03-27 05:39 | Inpatient (IN) | payer OTHER ==
[2017-03-27] MEDS ORDERED: ceFAZolin 2 GM/DEXTROSE 100 ML IV ONE (06:09)
[2017-03-27] MEDS ORDERED: LIDOCAINE 1% 2 ML INJ ID PRN (06:10)
[2017-03-27] MEDS ORDERED: LR 1,000 ML IV ONE (06:10)
[2017-03-27] MEDS ORDERED: BUPIVACAINE 0.5% 30 ML SDV ONE (06:52)
[2017-03-27] MEDS ORDERED: POLYMYXIN B SULFATE 500,000 UNIT/10 ML SYR IRR ONE (06:53)
--- NOTE | 2017-03-27 07:05 | PDANEPAE ---
ANE History of Present Illness 56 year old female presents for pancreatectomy w/ possible splenectomy. ANE Past Medical History - Cardiovascular History Hx Hypertension: No Hx Arrhythmias: No Hx Chest Pain: No Hx Coronary Artery / Peripheral Vascular Disease: No Hx CHF / Valvular Disease: No Hx Palpitations: No - Pulmonary History Hx COPD: No Hx Asthma/Reactive Airway Disease: No Hx Recent Upper Respiratory Infection: No Hx Oxygen in Use at Home: No Hx Sleep Apnea: No Sleep Apnea Screening Result - Last Documented: Negative - Neurologic History Hx Cerebrovascular Accident: No Hx Seizures: No Hx Dementia: No - Endocrine History Hx Diabetes: No Hypothyroid: No Hyperthyroid: No Obesity: no - Renal History Hx Renal Disorders: No - Liver History Hx Hepatic Disorders: No - Neurological & Psychiatric Hx Hx Neurological and Psychiatric Disorders: No - Congenital Disorder History Hx Congenital Disorders: No - GI History GERD: no Hx Gastrointestinal Disorders: Yes Gastrointestinal History Comment: pancreatic trauma 1985. GERD - Other Health History Other Health History: missing upper molar left - Chronic Pain History Chronic Pain: No - Surgical History Prior Surgeries: Cholecystectomy. Pancreatic shunt secondary to trauma. c- section ANE Review of Systems Review of systems is: negative Review of Systems: - Exercise capacity Exercise capacity: >=4 METS METS (RN): 4 METS ANE Patient History - Allergies Allergies/Adverse Reactions: No Known Allergies Allergy (Unverified 03/16/17 17:27) - Home Medications Home medications: home medication list seen and reviewed Home Medications: Omeprazole 40 mg PO DAILY 03/16/17 [Last Taken 03/27/17 05:00] - NPO status NPO Status: no food or drink >8 hours NPO Since - Liquids (Date): 03/26/17 NPO Since - Liquids (Time): 07:30 NPO Since - Solids (Date): 03/27/17 NPO Since - Solids (Time): 18:00 - Anes Hx Anes Hx: no prior problems - Smoking Hx Smoking Status: Former smoker - Alcohol Use Alcohol Use: Rarely - Family Anes Hx Family Anes Hx: neg - N/A Family Hx Anesthesia Complications: none ANE Labs/Vital Signs - Vital Signs Vital Signs: reviewed preoperatively; see RN documention for details Blood Pressure: 129/90 Heart Rate: 58 Respiratory Rate: 16 O2 Sat (%): 94 Height: 165.1 cm Weight: 80.739 kg ANE Physical Exam - Airway Neck exam: FROM Mallampati Score: Class 1 Mouth exam: normal dental/mouth exam - Pulmonary Pulmonary: no respiratory distress - Cardiovascular Cardiovascular: regular rate and rhythym - ASA Status ASA Status: II ANE Anesthesia Plan Anesthesia Plan: general endotracheal anesthesia, epidural (Epidural for post- op pain control. )
[2017-03-27] MEDS ORDERED: MIDAZOLAM 2 MG/2 ML VIAL IVP ONE (07:07)
[2017-03-27] MEDS ORDERED: fentaNYL 100 MCG/2 ML INJ ONE (07:11)
[2017-03-27] MEDS ORDERED: PROPOFOL 200 MG/20 ML VIAL ONE (07:11)
[2017-03-27] MEDS ORDERED: ROCURONIUM 50 MG/5 ML VIAL ONE ×2 (07:12→08:25)
[2017-03-27] MEDS ORDERED: LIDOCAINE 2% 5 ML SDV ONE (07:12)
--- NOTE | 2017-03-27 07:15 | PDHPUP ---
History & Physical Update H&P update statement: This history and physical update is based on an assessment of the patient which was completed after admission or registration (within 24 hours), but prior to the surgery/procedure. H&P update: H&P reviewed & patient examined, no change in patient's condition since H&P completed
[2017-03-27] MEDS ORDERED: ONDANSETRON 4 MG/2 ML VIAL ONE ×2 (08:03→12:27)
[2017-03-27] MEDS ORDERED: DEXAMETHASONE 4 MG/ML VIAL ONE (08:03)
[2017-03-27] MEDS ORDERED: NALOXONE HCL 0.4 MG/ML INJ IVP PRN ×3 (08:30→12:08)
[2017-03-27] MEDS ORDERED: NARCOTIC DRIP BAG-TOTAL ALL TYPES EP PRN (08:30)
[2017-03-27] MEDS ORDERED: METOCLOPRAMIDE 10 MG/2 ML VIAL IV PRN (08:33)
[2017-03-27] MEDS ORDERED: ONDANSETRON 4 MG/2 ML VIAL IVP PRN ×3 (08:33→11:58)
[2017-03-27] MEDS ORDERED: diphenhydrAMINE 25 MG CAP PO PRN (08:34)
[2017-03-27] MEDS ORDERED: HYDROmorphONE/DILAUDID 2 MG/ML INJ ONE (08:37)
[2017-03-27] MEDS ORDERED: ALBUMIN 5% 250 ML BOTTLE IV ONE (08:47)
[2017-03-27] MEDS ORDERED: LR 500 ML IV PRN (09:32)
[2017-03-27] MEDS ORDERED: HYDROmorphONE/DILAUDID 1 MG/ML INJ IVP PRN (09:32)
[2017-03-27] MEDS ORDERED: fentaNYL 100 MCG/2 ML INJ IVP PRN (09:32)
[2017-03-27] MEDS ORDERED: PHENYLEPHRINE HCL 100 MCG/ML SYR ONE (09:39)
[2017-03-27 09:51] LABS: HEMATOCRIT 27.4 % (38.0-47.0); HEMOGLOBIN 8.6 g/dL (12.6-16.3)
[2017-03-27] MEDS ORDERED: ROPIVACAINE HCL 150 MG/30 ML INJ ONE (10:09)
[2017-03-27] MEDS ORDERED: THROMBIN (BOVINE) 20,000 UNIT SPRAY TP ONE (10:31)
[2017-03-27] MEDS ORDERED: SUGAMMADEX SODIUM 200 MG/2 ML VIAL IVP ONE (11:43)
--- NOTE | 2017-03-27 11:53 | POSTOPPROG ---
Post Op Note Date of Operation: 03/27/17 Surgeon: Lino Solares Clinical Scientist: Vasu Monteiro MD, Lisbeth Fragoso PA-C Anesthesia: GET(General Endotracheal) Pre-op Diagnosis: complex pancreatic mass, infection Post-op Diagnosis: same, likely malignancy Procedure: distal pancreatectomy, splenectomy, partial gastrectomy and colectomy Findings: complex multilobulated mass invading colon and stomach Inf/Abcess present in the surg proc area at time of surgery?: No Depth: Organ Space EBL: 1200cc Complications: none Drains: Evan Bryant Specimen(s): to pathology and cultures to pathology
[2017-03-27] MEDS ORDERED: PHENYLEPHRINE HCL 100 MCG/ML SYR IVP PRN (12:08)
[2017-03-27] MEDS ORDERED: ALBUMIN 5% 500 ML IV ONE (12:12)
[2017-03-27] MEDS ORDERED: GLYCOPYRROLATE 0.2 MG/1 ML VIAL ONE (12:18)
[2017-03-27 12:43] LABS: HEMATOCRIT 19.4 % (38.0-47.0)
[2017-03-27 12:45] LABS: HEMOGLOBIN 6.1 g/dL (12.6-16.3)
[2017-03-27] MEDS: REGARDING ANTICOAG MISC SCH (14:17)
[2017-03-27] MEDS: DC NARCS MISC SCH (14:17)
[2017-03-27 14:50] LABS: INR 1.37 (0.83-1.16); PROTIME(PATIENT) 16.9 SEC (12.0-15.0)
[2017-03-27 14:51] LABS: APTT 20.8 SEC (23.0-38.0)
[2017-03-27 14:56] LABS: ALANINE AMINOTRANSFERASE 32 IU/L (9-52); ALBUMIN 3.3 g/dL (3.5-5.0); ALKALINE PHOSPHATASE 30 IU/L (38-126); ANION GAP 12 mEq/L (8-16); ASPARTATE AMINOTRANSFERASE 25 IU/L (14-46); BILIRUBIN,TOTAL 0.9 mg/dL (0.1-1.4); CALCIUM 8.1 mg/dL (8.5-10.4); CARBON DIOXIDE 22 mEq/l (22-31); CHLORIDE 107 mEq/L (97-110); CREATININE 0.7 mg/dL (0.6-1.0); GLOMERULAR FILTRATION RATE > 60; GLUCOSE 175 mg/dL (70-100); POTASSIUM 4.1 mEq/L (3.5-5.2); SODIUM 141 mEq/L (134-144); TOTAL PROTEIN 5.5 g/dL (6.3-8.2)
[2017-03-27 15:05] LABS: HEMATOCRIT 26.3 % (38.0-47.0); HEMOGLOBIN 8.3 g/dL (12.6-16.3)
[2017-03-27] MEDS: ERTAPENEM 1 GM in NS 100 ML IV SCH (15:15)
[2017-03-27 16:56] LABS: HEMATOCRIT 26.7 % (38.0-47.0); HEMOGLOBIN 8.6 g/dL (12.6-16.3)
--- NOTE | 2017-03-27 17:32 | POSTANESTH ---
Post Anesthetic Evaluation Cardiovascular Status: Tx Hyper/Hypo-tension (Mild hypotension likely due to thoracic epidural.) Respiratory Status: Normal, Stable, Similar to Pre-op Cond. Level of Consciousness/Mental Status: Can Participate in Eval, Alert and Oriented Pain Control: Adequate, Prn Tx Ordered Nausea/Vomiting Control: Adequate, Prn Tx Ordered Complications Possibly Related to Anesthesia: None Noted Notes: Patient evaluated this evening in ICU following surgery this morning. Pain well controlled with thoracic epidural. Patient reports mild nausea, but otherwise doing very well. ICU Nursing staff given Dr. Benitez (Anesthesiology) personal cell and pager for all issues related to thoracic epidural or pain control while epidural is in place.
--- NOTE | 2017-03-27 17:58 | SOAPPROG ---
SOAP Progress Note Assessment/Plan: Assessment: 56yo F POD#0 s/p distal pancreatectomy, splenectomy, partial gastrectomy and colectomy Lying in bed. Pain well controlled. Complaining of nausea without vomiting controlled by Zofran. Family is present with many questions regarding diagnosis. Discussed that it will take a few days for the official pathology report to be resulted and at that time further treatment modalities will be discussed. No other complaints. Objective: Vital Signs Temp Pulse Resp BP Pulse Ox 36.4 C 100 18 90/55 L 96 03/27/17 13:08 03/27/17 17:00 03/27/17 17:00 03/27/17 17:00 03/27/17 17:00 Microbiology 03/27/17 09:30 Gram Stain - Final Other - Eswab Laboratory Results 03/27/17 16:23 03/27/17 14:33 03/26/17 03/27/17 03/28/17 05:59 05:59 05:59 Intake Total 4783 Output Total 2235 Balance 2548 PT 16.9 SEC (12.0-15.0) H 03/27/17 14:33 INR 1.37 (0.83-1.16) H 03/27/17 14:33 ICD10 Worksheet Patient Problems: Problems Problem Status Onset Abdominal pain Acute Fever Acute
[2017-03-27] MEDS ORDERED: PHYTONADIONE 5 MG in NS 50 ML IV ONE (20:00)
[2017-03-27] MEDS: fentaNYL 2MCG/ML/BUP 0.1% RTU 100 ML EP SCH (20:35)
[2017-03-27 21:55] LABS: HEMATOCRIT 28.2 % (38.0-47.0); HEMOGLOBIN 9.4 g/dL (12.6-16.3)
[2017-03-28 04:41] LABS: HEMATOCRIT 30.2 % (38.0-47.0); HEMOGLOBIN 9.8 g/dL (12.6-16.3)
--- NOTE | 2017-03-28 05:06 | GOP ---
[f rep st] OPERATIVE REPORT DATE OF OPERATION: 03/27/2017 SURGEON: iLno Solares MD SCALE SHOOTER: Vasu Monteiro MD and MRAIELA Aguayo. PREOPERATIVE DIAGNOSIS: Left upper quadrant pancreatic mass with a history of pseudocyst. 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 PROCEDURE PERFORMED: Distal pancreatectomy with partial gastrectomy, partial colectomy, partial small bowel resection and drainage of abscess. FINDINGS: The patient was found to have soft ball sized tumor involving the distal pancreas. It was adherent, but not invading the stomach. It was also adherent, but not invading the colon. There has been a previous Guerda-en-Y to this area, which was also still adherent to the pancreas. The spleen was included in the specimen. DESCRIPTION OF PROCEDURE: The patient was taken to the operating room where she received satisfactory general endotracheal anesthesia by Dr. Benitez. She also had a thoracic epidural. She was placed in supine position, prepped and draped in usual sterile fashion. A left subcostal incision was made and carried through the musculature and a fascial level. The peritoneum was carefully entered. Adhesions were taken down from previous surgery. A mass was readily palpable. The lesser sac was entered by dividing the gastrocolic omentum. It was done with the Harmonic scalpel and the distal segment of the pancreas was dissected free and controlled. The splenic artery was dissected free and then doubly ligated. The splenic vein was dissected free and ligated with 0 silk tie. The distal pancreas was then divided with a TANVI stapler and appeared to be hemostatic. Tedious dissection then ensued, dividing the short gastrics and the stomach from the mass. There were purulent areas in this mass and culture was obtained. The inferior aspect of the mass was dissected free as well. The colon was quite adherent at the splenic flexure. This was divided with a TANVI stapler. The remaining portion of the colon attached to the mass. There was an area of small bowel attachment to this mass , that too was dissected free and divided with a TANVI stapler, after division of a portion of her mesentery with the Harmonic Scalpel. The colon and small bowel were then retracted inferiorly. The lienorenal ligament was divided with the Harmonic Scalpel. The spleen and tail of the pancreas were elevated up until they could be delivered out of the incision. Diffuse retroperitoneal attachments were divided using electrocautery with the Harmonic Scalpel. The hilum of the spleen vessels had been previously ligated but were again ligated with the Endo-TANVI stapler and divided with care to avoid injury to the vasculature of the kidney and the adrenal gland, which were readily visible. This entire mass was brought up out of the incision and eventually was freed up enough to be removed and sent to Pathology. Hemostasis was thoroughly obtained 2-0 silk suture ligatures. The posterior wall of the stomach, which had been adherent to the tumor mass, was then resected with an elliptical incision of the posterior gastric wall. This was then closed using a running 2-0 Vicryl suture, with a 2nd layer of inverting 2-0 silk Lembert sutures. The stomach remained quite patent and viable with good blood supply. The wound was copiously irrigated. The specimen had been sent to Pathology and the report was returned as mucinous cystadenocarcinoma of the pancreas. The wound was thoroughly irrigated and hemostasis was assured. Two 15 round silicone ANTONIO drains were brought out through separate stab incisions, 1 placed in the left upper quadrant and the other placed in the lesser sac adjacent to the pancreatic stump. These were secured to skin with 2-0 silk sutures.Using clean closure set-up, the wound was then closed in layers with a #1 Vicryl suture with a posterior sheath and a running #1 PDS suture for the anterior sheath. The wound was infiltrated with 0.5% Marcaine and the skin was closed with skin margi. She tolerated the procedure well. She was taken to the recovery room in good condition. There were no complications. Copy requested to: Dr. Ben Rodrigues /[id number]/MODL [facility]
[2017-03-28 05:25] LABS: ANION GAP 8 mEq/L (8-16); CALCIUM 7.6 mg/dL (8.5-10.4); CARBON DIOXIDE 22 mEq/l (22-31); CHLORIDE 112 mEq/L (97-110); CREATININE 0.6 mg/dL (0.6-1.0); GLOMERULAR FILTRATION RATE > 60; GLUCOSE 151 mg/dL (70-100); POTASSIUM 3.9 mEq/L (3.5-5.2); SODIUM 142 mEq/L (134-144)
[2017-03-28] MEDS: fentaNYL 2MCG/ML/BUP 0.1% RTU 100 ML EP SCH ×2 (06:08→19:50)
--- NOTE | 2017-03-28 07:42 | SOAPPROG ---
SOAP Progress Note Assessment/Plan: Assessment: - Anesthesiology Thoracic Epidural / Acute Pain Note 56 year old female now POD#1 from distal pancreatectomy, splenectomy and partial gastrectomy. Patient with well targeted thoracic epidural initiated at 8ml/hr with demand dose of 5ml Q04usbh (max 3 boluses in 1 hour). Pain well controlled on evening of 03/27/17 with mild hypotension, PCEA infusion rate dropped from 8ml/hr to 5ml/hr. Pain in abdomen well controlled overnight, but reporting pain in left shoulder. Given location of surgical resection, left shoulder pain likely a referred pain from left diaphragm region to left shoulder not covered by thoracic epidural. plan to decrease infusion rate today from 5ml/hr to 4ml/hr with demand dose to remain 5ml Q15min with max 3/ hr. Plan: 1. Plan to decrease infusion rate today from 5ml/hr to 4ml/hr with demand dose to remain 5ml Q15min with max 3/hr. 2. Initiate Hydromorphone 0.2-0.4mg Q2Hr PRN for shoulder discomfort (No Oral pain medications at this time.) 3. Per discussion with surgical team, patient to be started on DVT prophylaxis (Lovenox Qday) on POD #2 (03/29/17) 4. Anesthesiologist Dr. Benitez; to manage pain control while thoracic epidural in place 03/28/17 07:39 03/28/17 07:44 03/28/17 07:52 Subjective: Patient reported nausea through end of 03/27/17, but denies nausea on 03/28/17. Does report left shoulder pain, but no pain in abdomen / incisional pain. Objective: Vital Signs Temp Pulse Resp BP Pulse Ox 37.5 C 102 H 19 97/55 L 93 03/27/17 20:00 03/28/17 07:00 03/28/17 07:00 03/28/17 07:00 03/28/17 07:00 Microbiology 03/27/17 09:30 Gram Stain - Final Other - Eswab Laboratory Results 03/28/17 04:30 03/28/17 04:30 03/27/17 03/28/17 03/29/17 05:59 05:59 05:59 Intake Total 6982 Output Total 3225 Balance 3757 PT 16.9 SEC (12.0-15.0) H 03/27/17 14:33 INR 1.37 (0.83-1.16) H 03/27/17 14:33 - Pending Discharge Pending Discharge Within 24 Hours: No Physical Exam - Physical Exam General Appearance: WD/WN EENT: PERRL/EOMI Respiratory: chest non-tender, lungs clear Cardiac/Chest: regular rate, rhythm Back: Other (Thoracic epidural catheter at T7-T8; catheter remains at position initially placed of 14cm at skin.) Skin: normal color, warm/dry (Skin on patient's back under tegaderm evaluated. No pooling of epidural infusion, clean, dry intact ) ICD10 Worksheet Patient Problems: Problems Problem Status Onset Abdominal pain Acute Fever Acute
[2017-03-28] MEDS ORDERED: FAMOTIDINE 20 MG/NACL 50 ML IV SCH (07:45)
[2017-03-28] MEDS: PANTOPRAZOLE SODIUM 40 MG in NS 100 ML IV SCH (08:27)
[2017-03-28] MEDS: HYDROmorphONE/DILAUDID 1 MG/ML INJ IVP PRN ×4 (08:28→16:02)
[2017-03-28] MEDS: METOCLOPRAMIDE 10 MG/2 ML VIAL IVP SCH ×3 (08:28→18:27)
[2017-03-28] MEDS ORDERED: PANTOPRAZOLE SODIUM 40 MG TAB PO SCH (09:00)
[2017-03-28] MEDS: ERTAPENEM 1 GM in NS 100 ML IV SCH (09:17)
[2017-03-28] MEDS: REGARDING ANTICOAG MISC SCH (09:20)
[2017-03-28] MEDS: DC NARCS MISC SCH (09:20)
--- NOTE | 2017-03-28 09:32 | ASMTCMCOM ---
CM Note CM Note Notes: 56 year old female admitted for abdominal pain/pancreatic mass. Surgery: partial gastrectomy, partial colectomy, small bowel resection, and drainage of abscess. Patient has a hx of pseudocyst. CM to follow for discharge needs. Date Signed: 03/28/2017 09:31 AM Electronically Signed By:Minerva Shin LCSW
--- NOTE | 2017-03-28 10:52 | GCON ---
[f rep st] CONSULTATION LICENSED AUDIOLOGIST CONSULTATION Patient examined postoperatively after receiving distal pancreatectomy. HISTORY OF PRESENT ILLNESS: The patient is a very pleasant 56-year-old white female who was again ex amined postoperatively after receiving a distal pancreatectomy. She was found to have an abdominal m ass and had a CT scan done recently. She did have a distant history of a pancreatic pseudocyst. In discussion with patient, she states with the exception of some abdominal pain, she is doing quite wel l. She denies any cough or production of sputum. There is no chest pain, pleuritic-type chest pain, or anginal equivalent. There is no fever or night sweats. She does have a little bit of nausea. PAST MEDICAL HISTORY: Again significant for pancreatic mass. ALLERGIES: No known allergies to medication. SOCIAL HISTORY: No history of tobacco use. Infrequent alcohol use. PHYSICAL EXAM: VITAL SIGNS: Blood pressure 102/59, pulse is 101, respiration rate 18, temperature 37.4, oxygen saturation 94% on 2 L. GENERAL: She is a mildly overweight but very pleasant 56-year-o ld white female who is resting comfortably, in no acute distress. HEENT: Eyes PERRL, EOMI. Throat shows no erythema or tonsillar hypertrophy. NECK: Supple. No cervical adenopathy. HEART: Regular rate and rhythm, without murmurs, rubs, or gallops. LUNGS: Diminished breath sounds but no wheeze. ABDOMEN: Soft, appropriately tender. Bowel sounds are diminished. EXTREMITIES: No clubbing, cya nosis, or edema. LABORATORY DATA: Hemoglobin is 9.8, hematocrit 30. INR 1.37. Sodium 142, potassium 3.9, chloride 1 12, CO2 22, BUN 9, creatinine 0.6. Glucose is 151. IMPRESSION: 1. Complex pancreatic mass. 2. Status post distal pancreatectomy, splenectomy, partial gastrectomy, and colectomy. RECOMMENDATIONS: 1. Aggressive pain control. 2. DVT and PE prophylaxis. 3. Stress ulcer prophylaxis. 4. Out of bed to chair. 5. PT and OT. /[id number]/MODL
[2017-03-28] MEDS: D5W 1/2 NS W/ 20 KCl/L 1,000 ML IV SCH (16:35)
--- NOTE | 2017-03-28 17:00 | SOAPPROG ---
SOAP Progress Note Assessment/Plan: Assessment: P.O. D 1./DOING WELL WITH NO PARTICULAR DIFFICULTIES/EPIDURAL WORKING WELL FOR PAIN CONTROL/HEMATOCRIT STABLE AT 30/URINE OUTPUT GOOD/NG OUTPUT MINIMAL ABDOMEN SOFT NONTENDER WOUND OKAY CHEST CLEAR/COR REGULAR RHYTHM EXTREMITIES WITHOUT EDEMA OR EVIDENCE OF DVT PATH PENDING Plan: TRANSFER TO MED SURG, CONTINUE EPIDURAL/DC NG WHEN ACTIVE GI FUNCTION 03/28/17 16:57 Objective: Vital Signs Temp Pulse Resp BP Pulse Ox 36.9 C 105 H 17 104/68 94 03/28/17 16:00 03/28/17 16:00 03/28/17 16:00 03/28/17 16:00 03/28/17 16:00 Microbiology 03/27/17 09:30 Gram Stain - Final Other - Eswab Laboratory Results 03/28/17 04:30 03/28/17 04:30 03/27/17 03/28/17 03/29/17 05:59 05:59 05:59 Intake Total 6982 Output Total 3225 530 Balance 3757 -530 PT 16.9 SEC (12.0-15.0) H 03/27/17 14:33 INR 1.37 (0.83-1.16) H 03/27/17 14:33 ICD10 Worksheet Patient Problems: Problems Problem Status Onset Abdominal pain Acute Fever Acute
[2017-03-28] MEDS: KETOROLAC 15 MG/1 ML SDV IVP PRN (21:50)
[2017-03-29] MEDS: METOCLOPRAMIDE 10 MG/2 ML VIAL IVP SCH ×4 (00:29→18:16)
[2017-03-29] MEDS: KETOROLAC 15 MG/1 ML SDV IVP PRN ×2 (06:12→12:14)
[2017-03-29] MEDS: fentaNYL 2MCG/ML/BUP 0.1% RTU 100 ML EP SCH (06:45)
[2017-03-29] MEDS ORDERED: ENOXAPARIN 40 MG/0.4 ML SYR SC SCH (09:00)
--- NOTE | 2017-03-29 09:39 | SOAPPROG ---
SOAP Progress Note Assessment/Plan: Assessment/Plan: 56 Y F s/p laparotomy with distal pancreatectomy, splenectomy, partial gastrectomy, partial colectomy, POD#2. Pain control. Epidural working well. Defer to anesthesia. D/c tomorrow? Will hold lovenox for tomorrow to prepare. Continue quesada catheter until then. Ileus. Improved. Passing gas. Good bowel sounds. D/c'ed NGT and will start clears. Continue ANTONIO drains. Removed dressing--may leave to air if continues to be dry. Continue IV abx for possible fecal contamination. Pathology pending. Dispo: maybe in 2-3 days pending course. S: pain controlled. passing gas. no n/v. O: alert, nad mmm chest clear rrr abd soft, +BS inc cdi drains serosanguinous 03/29/17 09:36 Objective: Vital Signs Temp Pulse Resp BP Pulse Ox 36.6 C 94 12 117/67 93 03/29/17 08:00 03/29/17 08:00 03/29/17 08:00 03/29/17 08:00 03/29/17 08:00 Microbiology 03/27/17 09:30 Gram Stain - Final Other - Eswab Laboratory Results 03/28/17 04:30 03/28/17 04:30 03/28/17 03/29/17 03/30/17 05:59 05:59 05:59 Intake Total 6982 1454 Output Total 3225 1030 835 Balance 3757 424 -835 PT 16.9 SEC (12.0-15.0) H 03/27/17 14:33 INR 1.37 (0.83-1.16) H 03/27/17 14:33 ICD10 Worksheet Patient Problems: Problems Problem Status Onset Abdominal pain Acute Fever Acute
[2017-03-29] MEDS: PANTOPRAZOLE SODIUM 40 MG in NS 100 ML IV SCH (09:45)
[2017-03-29] MEDS: REGARDING ANTICOAG MISC SCH (09:50)
[2017-03-29] MEDS: DC NARCS MISC SCH (09:50)
--- NOTE | 2017-03-29 10:50 | ASMTCMCOM ---
CM Note CM Note Notes: 03/29/2017 Case Management Note: Reviewed chart. No case management d/c needs identified d/t pt age, marital status and activity levels prior to admission. PT karenal recommends no further follow up. Case Management d/c poc: Home independent w/follow up as directed when medically stable. Case Management available if needs change. 03/28/2017 CM Note 56 year old female admitted for abdominal pain/pancreatic mass. Surgery: partial gastrectomy, partial colectomy, small bowel resection, and drainage of abscess. Patient has a hx of pseudocyst. CM to follow for discharge needs. Date Signed: 03/29/2017 10:50 AM Electronically Signed By:Barb Prado RN
[2017-03-29] MEDS: ERTAPENEM 1 GM in NS 100 ML IV SCH (12:30)
[2017-03-29] MEDS: D5W 1/2 NS W/ 20 KCl/L 1,000 ML IV SCH (13:09)
--- NOTE | 2017-03-29 15:52 | SOAPPROG ---
[place] Progress Note Assessment/Plan: Assessment: - Anesthesiology Thoracic Epidural / Acute Pain Note 56 year old female now POD#2 from distal pancreatectomy, splenectomy and partial gastrectomy on 03-27-17. Patient with well targeted thoracic epidural with infusion rate of 4ml/hr. Patient reports abdominal pain of 1-2 out of 10. Intermittent left shoulder pain. Plan to decrease infusion to 2ml/hr this evening and add PO PRN pain medications. If pain well controlled overnight, plan to DC epidural on 03-30-2017. Said plan discussed w/ Dr. Solares. Plan: 1. Plan to decrease infusion rate today from 4ml/hr to 2ml/hr with demand dose to remain 5ml Q15min with max 3/hr. 2. Continue Hydromorphone 0.2-0.4mg Q2Hr PRN for shoulder discomfort 3. Start oxycodone 5-10mg Q4Hr PRN 4. Anesthesiologist Dr. Benitez; to manage pain control while thoracic epidural in place - please contact with questions 5. Likely DC thoracic epidural on 03-30-2017 Objective: Vital Signs Temp Pulse Resp BP Pulse Ox 36.9 C 92 14 120/77 93 03/29/17 14:00 03/29/17 14:00 03/29/17 14:00 03/29/17 14:00 03/29/17 14:00 Microbiology 03/27/17 09:30 Gram Stain - Final Other - Eswab Laboratory Results 03/28/17 04:30 03/28/17 04:30 03/28/17 03/29/17 03/30/17 05:59 05:59 05:59 Intake Total 6982 1454 Output Total 3225 1030 835 Balance 3757 424 -835 PT 16.9 SEC (12.0-15.0) H 03/27/17 14:33 INR 1.37 (0.83-1.16) H 03/27/17 14:33 - Pending Discharge Pending Discharge Within 24 Hours: No Pending Discharge Within 48 Hours: Yes Pending Discharge Date: 03/31/17 Physical Exam - Physical Exam General Appearance: WD/WN EENT: PERRL/EOMI Abdomen: non-tender Back: Other (Thoracic epidural in place. No pooling of local anesthetic under tegaderm cover.) ICD10 Worksheet Patient Problems: Problems Problem Status Onset Abdominal pain Acute Fever Acute
[2017-03-29] MEDS ORDERED: fentaNYL 2MCG/ML/BUP 0.1% RTU 100 ML EP SCH (15:59)
[2017-03-29] MEDS ORDERED: ACETAMINOPHEN 500 MG TAB PO PRN (16:02)
[2017-03-30] MEDS: METOCLOPRAMIDE 10 MG/2 ML VIAL IVP SCH ×5 (01:32→23:46)
[2017-03-30] MEDS: ERTAPENEM 1 GM in NS 100 ML IV SCH (08:06)
[2017-03-30] MEDS: PANTOPRAZOLE SODIUM 40 MG in NS 100 ML IV SCH (08:47)
[2017-03-30] MEDS: REGARDING ANTICOAG MISC SCH (08:50)
[2017-03-30] MEDS: DC NARCS MISC SCH (08:50)
--- NOTE | 2017-03-30 09:28 | SOAPPROG ---
SOAP Progress Note Assessment/Plan: Assessment: P.O. D 1./DOING WELL WITH NO PARTICULAR DIFFICULTIES/EPIDURAL WORKING WELL FOR PAIN CONTROL/HEMATOCRIT STABLE AT 30/URINE OUTPUT GOOD/NG OUTPUT MINIMAL ABDOMEN SOFT NONTENDER WOUND OKAY CHEST CLEAR/COR REGULAR RHYTHM EXTREMITIES WITHOUT EDEMA OR EVIDENCE OF DVT PATH PENDING Plan: TRANSFER TO MED SURG, CONTINUE EPIDURAL/DC NG WHEN ACTIVE GI FUNCTION 03/28/17 16:57 03/30/17 09:26 Vital signs stable/afebrile/abdomen soft nontender/wound okay/minimal ANTONIO drainage/urine output great/tolerating epidural Plan is advanced diet and wean off epidural Objective: Vital Signs Temp Pulse Resp BP Pulse Ox 37.3 C 82 16 125/80 H 90 L 03/30/17 08:00 03/30/17 08:00 03/30/17 08:00 03/30/17 08:00 03/30/17 08:00 Microbiology 03/27/17 09:30 Gram Stain - Final Other - Eswab Laboratory Results 03/28/17 04:30 03/28/17 04:30 03/29/17 03/30/17 03/31/17 05:59 05:59 05:59 Intake Total 1454 Output Total 1030 3485 Balance 424 -3485 PT 16.9 SEC (12.0-15.0) H 03/27/17 14:33 INR 1.37 (0.83-1.16) H 03/27/17 14:33 ICD10 Worksheet Patient Problems: Problems Problem Status Onset Abdominal pain Acute Fever Acute
[2017-03-30] MEDS: KETOROLAC 15 MG/1 ML SDV IVP PRN ×2 (13:31→19:29)
[2017-03-30] MEDS: oxyCODONE IR 5 MG TAB PO PRN ×3 (13:31→21:51)
--- NOTE | 2017-03-30 13:59 | SOAPPROG ---
SOAP Progress Note Assessment/Plan: Assessment: - Anesthesiology Thoracic Epidural / Acute Pain Note 56 year old female now POD#3 from distal pancreatectomy, splenectomy and partial gastrectomy on 03-27-17. Patient with well controlled pain overnight with epidural infusion rate = 2ml/hr. Epidural discontinued today. Patient's Lovenox held this am, epidural catheter pulled. Insertion site clean, dry and no signs of inflammation. Epidural catheter removed in its entirety. Plan: 1. Pulled catheter approx. noon today 2. PO pain medications PRN on AUG 3. Call anesthesiology (Dr. Benitez) with any questions regarding epidural. Subjective: Patient reports minimal to no abdominal pain overnight. Still reporting intermittent left shoulder pain. Denies nausea. Objective: Vital Signs Temp Pulse Resp BP Pulse Ox 36.8 C 89 16 144/88 H 92 03/30/17 11:45 03/30/17 11:45 03/30/17 11:45 03/30/17 11:45 03/30/17 11:45 Microbiology 03/27/17 09:30 Gram Stain - Final Other - Eswab Laboratory Results 03/28/17 04:30 03/28/17 04:30 03/29/17 03/30/17 03/31/17 05:59 05:59 05:59 Intake Total 1454 Output Total 1030 3485 1150 Balance 424 -3485 -1150 PT 16.9 SEC (12.0-15.0) H 03/27/17 14:33 INR 1.37 (0.83-1.16) H 03/27/17 14:33 Physical Exam - Physical Exam General Appearance: WD/WN, alert, no apparent distress Back: Other (Epdirual insertion site clean, dry without sigs of erythema) ICD10 Worksheet Patient Problems: Problems Problem Status Onset Abdominal pain Acute Fever Acute
[2017-03-30] MEDS: D5W 1/2 NS W/ 20 KCl/L 1,000 ML IV SCH (16:29)
--- NOTE | 2017-03-30 21:16 | SOAPPROG ---
SOAP Progress Note Assessment/Plan: Assessment: P.O. D 1./DOING WELL WITH NO PARTICULAR DIFFICULTIES/EPIDURAL WORKING WELL FOR PAIN CONTROL/HEMATOCRIT STABLE AT 30/URINE OUTPUT GOOD/NG OUTPUT MINIMAL ABDOMEN SOFT NONTENDER WOUND OKAY CHEST CLEAR/COR REGULAR RHYTHM EXTREMITIES WITHOUT EDEMA OR EVIDENCE OF DVT PATH PENDING Plan: TRANSFER TO MED SURG, CONTINUE EPIDURAL/DC NG WHEN ACTIVE GI FUNCTION 03/28/17 16:57 03/30/17 09:26 Vital signs stable/afebrile/abdomen soft nontender/wound okay/minimal ANTONIO drainage/urine output great/tolerating epidural Plan is advanced diet and wean off epidural 03/30/17 21:15 PATH REPORT SHOWED INVASIVE MUCINOUS CYSTADENOCARCINOMA OF THE PANCREAS WITH ADHERENCE TO THE WALL OF THE STOMACH BUT NO INVASION OF THE STOMACH WALL AND A SIMILAR ADHERENCE TO THE COLON WITH NO INVASION OF THE COLON MUCOSA. APPARENTLY NO LYMPH NODES WERE FOUND IN THE ENTIRE GIANT SPECIMEN. ALL SURGICAL MARGINS ARE CLEAR Objective: Vital Signs Temp Pulse Resp BP Pulse Ox 36.8 C 88 18 155/113 H 93 03/30/17 19:32 03/30/17 19:32 03/30/17 19:32 03/30/17 19:32 03/30/17 19:32 Microbiology 03/27/17 09:30 Gram Stain - Final Other - Eswab Laboratory Results 03/28/17 04:30 03/28/17 04:30 03/29/17 03/30/17 03/31/17 05:59 05:59 05:59 Intake Total 1454 1257 Output Total 1030 3485 3111 Balance 424 -8658 -8862 PT 16.9 SEC (12.0-15.0) H 03/27/17 14:33 INR 1.37 (0.83-1.16) H 03/27/17 14:33 ICD10 Worksheet Patient Problems: Problems Problem Status Onset Abdominal pain Acute Fever Acute
[2017-03-30] MEDS: ENALAPRILAT DIHYDRATE 1.25 MG/ML VIAL IVP PRN (23:46)
[2017-03-31] MEDS: D5W 1/2 NS W/ 20 KCl/L 1,000 ML IV SCH (01:06)
[2017-03-31] MEDS: oxyCODONE IR 5 MG TAB PO PRN ×3 (02:09→12:54)
[2017-03-31] MEDS: KETOROLAC 15 MG/1 ML SDV IVP PRN ×2 (03:14→09:27)
[2017-03-31] MEDS: METOCLOPRAMIDE 10 MG/2 ML VIAL IVP SCH ×2 (06:27→12:00)
[2017-03-31] MEDS: ENALAPRILAT DIHYDRATE 1.25 MG/ML VIAL IVP PRN (06:27)
[2017-03-31] MEDS: ERTAPENEM 1 GM in NS 100 ML IV SCH (08:55)
[2017-03-31 09:09] VITALS: RESP 16
[2017-03-31] MEDS: PANTOPRAZOLE SODIUM 40 MG in NS 100 ML IV SCH (09:27)
[2017-03-31 11:38] VITALS: BP 139/94; PULSE 94; TEMP 98; O2SAT 89
--- NOTE | 2017-03-31 13:14 | SOAPPROG ---
SOAP Progress Note Assessment/Plan: Assessment: 56yo F s/p distal pancreatectomy, splenectomy, partial gastrectomy and colectomy. Pathology demonstrating invasive mucinous cystadenoma of the pancreas with adherence to the stomach and colon without invasion. No lymph nodes found in the specimen. Dispo to home today Continue regular diet Cont pain control Cont ANTONIO drains and monitoring output Seen c Dr. Solares S: Pt eager to go home. Tolerating diet without N/V/D/C. Pain controlled. O: Sitting up in chair, NAD MMM No increased WOB Abd soft ANTONIO drains in place x2 with serous output Objective: Vital Signs Temp Pulse Resp BP Pulse Ox 36.7 C 94 16 139/94 H 89 L 03/31/17 11:36 03/31/17 11:36 03/31/17 11:36 03/31/17 11:36 03/31/17 11:36 Microbiology 03/27/17 09:30 Gram Stain - Final Other - Eswab Laboratory Results 03/28/17 04:30 03/28/17 04:30 03/30/17 03/31/17 04/01/17 05:59 05:59 05:59 Intake Total 1807 Output Total 6496 316 Balance -3485 -1354 PT 16.9 SEC (12.0-15.0) H 03/27/17 14:33 INR 1.37 (0.83-1.16) H 03/27/17 14:33 ICD10 Worksheet Patient Problems: Problems Problem Status Onset Abdominal pain Acute Fever Acute
--- NOTE | 2017-03-31 17:43 | ASDISCHSUM ---
Discharge Information Plan Status:Home with No Needs Medically Cleared to Leave: Discharge Date:03/31/2017 02:15 PM CM D/C Disposition:Home, Routine, Self-Care ADT D/C Disposition:Home, Routine, Self-Care Projected Discharge Date:03/31/2017 02:15 PM Transportation at D/C:Family Discharge Delay Reason: Follow-Up Date:03/31/2017 02:15 PM Discharge Slot: Final Diagnosis: Placement Information Patient Contact Information Contact Name:BRITTNEY Relationship: Address:[address] City:[place] Phone: [facility]/Zip Code:[place] [address] Email: Financial Information Financial Class:[employer] Primary Plan Desc:ALEXSANDER Perlita [facility] Primary Plan Number:[id number] Secondary Plan Desc: Secondary Plan Number: Assessment Information [facility] CM Progress Note CM Note CM Note Notes: 56 year old female admitted for abdominal pain/pancreatic mass. Surgery: partial gastrectomy, partial colectomy, small bowel resection, and drainage of abscess. Patient has a hx of pseudocyst. CM to follow for discharge needs. Date Signed: 03/28/2017 09:31 AM Electronically Signed By:Minerva Shin LCSW [facility] CM Progress Note CM Note CM Note Notes: 03/29/2017 Case Management Note: Reviewed chart. No case management d/c needs identified d/t pt age, marital status and activity levels prior to admission. PT caroline recommends no further follow up. Case Management d/c poc: Home independent w/follow up as directed when medically stable. Case Management available if needs change. 03/28/2017 CM Note 56 year old female admitted for abdominal pain/pancreatic mass. Surgery: partial gastrectomy, partial colectomy, small bowel resection, and drainage of abscess. Patient has a hx of pseudocyst. CM to follow for discharge needs. Date Signed: 03/29/2017 10:50 AM Electronically Signed By:Barb Prado RN Intervention Information
== END 2017-03-31 14:15 | disposition home or self-care (01) | DRG 406 ==
LOC: F3E 05:39 → F2N 13:56 → F3E 03-28 18:37
PROVIDERS: ADMIT Surgery; ATTEND Surgery
PROC: 30233N1 Transfusion of Nonautologous Red Blood Cells into Peripheral Vein, Percutaneous Approach (ICD-10-PCS; 2017-03-27)
PROC: 07TP0ZZ Resection of Spleen, Open Approach (ICD-10-PCS; principal; 2017-03-27 07:15)
PROC: 0DB60ZX Excision of Stomach, Open Approach, Diagnostic (ICD-10-PCS; principal; 2017-03-27 07:15)
PROC: 0FTG0ZZ Resection of Pancreas, Open Approach (ICD-10-PCS; principal; 2017-03-27 07:15)
PROC: 0DB80ZX Excision of Small Intestine, Open Approach, Diagnostic (ICD-10-PCS; principal; 2017-03-27 07:15)
PROC: 0DBN0ZX Excision of Sigmoid Colon, Open Approach, Diagnostic (ICD-10-PCS; principal; 2017-03-27 07:15)
DX: C25.9 Malignant neoplasm of pancreas, unspecified (principal); C16.9 Malignant neoplasm of stomach, unspecified
CPT/HCPCS: 97116-GP; 97161-GP; 97165-GO; 97530-GO; 97535-GO; J0690; J1100; J1170; J1335; J1650; J1885; J2250; J2370; J2405; J2704; J2765; J2795; J3010; J3430; P9016; P9041

== ENCOUNTER 2017-05-08 10:32 | Day surgery (SDC) | payer OTHER ==
--- NOTE | 2017-05-08 07:25 | PDHPUP ---
History & Physical Update H&P update statement: This history and physical update is based on an assessment of the patient which was completed after admission or registration (within 24 hours), but prior to the surgery/procedure. H&P changes: Here for power port placement with flouroscopy for venous access for chemotherapy. Risks and options discussed, including bleeding, infection, nerve injury, pneumothorax, catheter malfunction, need for revision and or removal/replacement.
[2017-05-08] MEDS ORDERED: ceFAZolin 2 GM/SWFI 2 GM/20 ML SYR IVP ONE (10:55)
[2017-05-08] MEDS ORDERED: LIDOCAINE 1% 2 ML INJ ID PRN (11:09)
[2017-05-08] MEDS ORDERED: LR 1,000 ML IV ONE (11:09)
--- NOTE | 2017-05-08 11:15 | PDANEPAE ---
ANE History of Present Illness 56 year old female presents for vascular access placement. ANE Past Medical History - Cardiovascular History Hx Hypertension: No Hx Arrhythmias: No Hx Chest Pain: No Hx Coronary Artery / Peripheral Vascular Disease: No Hx CHF / Valvular Disease: No Hx Palpitations: No - Pulmonary History Hx COPD: No Hx Asthma/Reactive Airway Disease: No Hx Recent Upper Respiratory Infection: No Hx Oxygen in Use at Home: No Hx Sleep Apnea: No - Neurologic History Hx Cerebrovascular Accident: No Hx Seizures: No Hx Dementia: No - Endocrine History Hx Diabetes: No - Renal History Hx Renal Disorders: No - Liver History Hx Hepatic Disorders: No - Neurological & Psychiatric Hx Hx Neurological and Psychiatric Disorders: No - Cancer History Hx Cancer: Yes Cancer History Comment: Pancreatic cancer (tail) s/p resection, splenectomy, partial gastrectomy. Patient to start chemotherapy. - Congenital Disorder History Hx Congenital Disorders: No - GI History Hx Gastrointestinal Disorders: Yes Gastrointestinal History Comment: pancreatic trauma 1985. GERD - Other Health History Other Health History: missing upper molar left - Chronic Pain History Chronic Pain: No - Surgical History Prior Surgeries: Cholecystectomy. Pancreatic shunt secondary to trauma. c- section ANE Review of Systems Review of systems is: negative Review of Systems: - Exercise capacity Exercise capacity: >=4 METS METS (RN): 4 METS ANE Patient History - Allergies Allergies/Adverse Reactions: No Known Allergies Allergy (Unverified 03/16/17 17:27) - Home Medications Home medications: home medication list seen and reviewed Home Medications: RX: Omeprazole 40 mg PO DAILY 03/16/17 [Last Taken 05/08/17 07:30] - NPO status NPO Status: no food or drink >8 hours - Anes Hx Anes Hx: no prior problems - Smoking Hx Smoking Status: Former smoker - Alcohol Use Alcohol Use: None - Family Anes Hx Family Anes Hx: neg - N/A Family Hx Anesthesia Complications: none ANE Labs/Vital Signs - Vital Signs Vital Signs: reviewed preoperatively; see RN documention for details Height: 165.1 cm Weight: 77.111 kg ANE Physical Exam - Airway Neck exam: FROM Mallampati Score: Class 2 Mouth exam: normal dental/mouth exam - Pulmonary Pulmonary: no respiratory distress - Cardiovascular Cardiovascular: regular rate and rhythym - ASA Status ASA Status: III ANE Anesthesia Plan Anesthesia Plan: GA w LMA, GA with mask Total IV Anesthesia: Yes
[2017-05-08] MEDS ORDERED: BUPIVACAINE 0.5% 30 ML SDV ONE (11:41)
[2017-05-08] MEDS ORDERED: BACITRACIN ZINC 14.2 GM OINTTUBE TP ONE (11:41)
[2017-05-08] MEDS ORDERED: PROPOFOL/EMULSION 500 MG/50 ML BOTTLE IV ONE ×2 (12:17→12:41)
[2017-05-08] MEDS ORDERED: fentaNYL 100 MCG/2 ML INJ ONE (12:40)
[2017-05-08] MEDS ORDERED: fentaNYL 100 MCG/2 ML INJ IVP PRN (12:52)
[2017-05-08] MEDS ORDERED: LR 500 ML IV PRN (12:52)
[2017-05-08] MEDS ORDERED: ONDANSETRON 4 MG/2 ML VIAL IVP PRN (12:52)
[2017-05-08] MEDS ORDERED: HYDROCODONE/APAP 5/325 TAB PO PRN (12:52)
[2017-05-08] MEDS ORDERED: NALOXONE HCL 0.4 MG/ML INJ IVP PRN (12:52)
[2017-05-08] MEDS ORDERED: PROPOFOL 200 MG/20 ML VIAL ONE (13:04)
[2017-05-08 13:29] VITALS: TEMP 97.5
--- NOTE | 2017-05-08 13:38 | POSTOPPROG ---
Post Op Note Date of Operation: 05/08/17 Surgeon: Lino Solares Anesthesiologist: Emmanuel Anesthesia: GET(General Endotracheal) Pre-op Diagnosis: Pancreatic cancer Post-op Diagnosis: Same Indication: Chemo access Procedure: Left subclavian port with fluoroscopic guidance Findings: Good flow and position Inf/Abcess present in the surg proc area at time of surgery?: No Depth: Deep Incisional (Fascial) EBL: Minimal Complications: None
[2017-05-08 14:03] VITALS: PULSE 61; RESP 16
[2017-05-08 14:48] VITALS: BP 143/87; O2SAT 93
--- NOTE | 2017-05-08 21:23 | POSTANESTH ---
Post Anesthetic Evaluation Cardiovascular Status: Normal, Stable, Similar to Pre-Op Cond Respiratory Status: Normal, Stable, Similar to Pre-op Cond. Level of Consciousness/Mental Status: Can Participate in Eval, Alert and Oriented Pain Control: Adequate, Prn Tx Ordered Nausea/Vomiting Control: Adequate, Prn Tx Ordered Complications Possibly Related to Anesthesia: None Noted
--- NOTE | 2017-05-09 02:09 | GOP ---
[f rep st] OPERATIVE REPORT DATE OF OPERATION: 05/08/2017 SURGEON: Lino Solares MD INSPECTOR MACHINE CUT GLASS: There was no periodontal assistant. ANESTHESIA: Dr. Benitez. PREOPERATIVE DIAGNOSIS: Pancreatic cancer. POSTOPERATIVE DIAGNOSIS: Pancreatic cancer. PROCEDURE PERFORMED: Left subclavian port placement with fluoroscopic guidance. FINDINGS: Good flow DESCRIPTION OF PROCEDURE: Patient was taken to the operating room where she received satisfactory general laryngeal mask anesthesia by Dr. Benitez. She was placed in the supine position, prepped and draped in the usual sterile fashion. A single stick was made in the left subclavian vein. A guidewire was introduced; position was confirmed with fluoroscopy. A subcu pocket was made in the 2nd intercostal space. Port tubing was passed from that pocket to the subclavian insertion site. It was trimmed to the appropriate length using fluoroscopic guidance and introduced through the introducer sheath and dilator system into the right atrium. Good backflow was achieved. The catheter was flushed with heparin and saline. Port was secured to the fascia with 3-0 Vicryl. The pocket was closed with 3-0 Vicryl for the subcu and a 4-0 Prolene subcuticular stitch for the skin. Wounds were infiltrated with 0.5% Marcaine. The entrance site was closed with a Prolene mattress suture and appropriately dressed. She tolerated the procedure well, taken to the recovery room in good condition. There were no complications. Copy requested to: Dr. Guevara /[id number]/MODL [id number]
== END 2017-05-08 14:35 | disposition home or self-care (01) ==
LOC: FSGY 10:32
PROVIDERS: ATTEND Surgery
PROC: 02H633Z Insertion of Infusion Device into Right Atrium, Percutaneous Approach (ICD-10-PCS; principal; 2017-05-08 11:45)
PROC: 0JH60XZ Insertion of Tunneled Vascular Access Device into Chest Subcutaneous Tissue and Fascia, Open Approach (ICD-10-PCS; principal; 2017-05-08 11:45)
DX: Z45.2 Encounter for adjustment and management of vascular access device (principal); C25.8 Malignant neoplasm of overlapping sites of pancreas
CPT/HCPCS: C1788; J0690; J1642; J2704; J3010

== ENCOUNTER → 2017-07-03 | Outpatient (CLI) | payer OTHER ==
[~2017-07-03] MED LIST: IOPAMIDOL (ISOVUE 370) 100 ML BTL IV ONE
== END ==
LOC: FIMAGING 12:43
PROVIDERS: ATTEND Nurse Practitioner
DX: Z45.2 Encounter for adjustment and management of vascular access device (principal); C25.2 Malignant neoplasm of tail of pancreas
CPT/HCPCS: J1642; Q9967